=== PATIENT | male | born 1985 | race Caucasian/White ===

== ENCOUNTER 2022-10-27 20:35 | Emergency (ER) | payer MEDICAID ==
[~2022-10-27] VITALS: Ht 182.9 cm; Wt 68.0 kg
[2022-10-27] MEDS ORDERED: NAPRELAN500 MG PO (22:16)
[2022-10-27] MEDS ORDERED: AMOX/K CLAV875 M1 PO (22:16)
[2022-10-27 22:44] VITALS: BP 109/75
== END 2022-10-27 22:44 | disposition home or self-care (01) ==
LOC: ED 20:35
DX: S61.452A Open bite of left hand, initial encounter (principal); S61.451A Open bite of right hand, initial encounter; W55.01XA Bitten by cat, initial encounter; Y93.89 Activity, other specified; Y92.009 Unspecified place in unspecified non-institutional (private) residence as the place of occurrence of the external cause